=== PATIENT | female | born 1990 | race Hispanic/Latino ===

== ENCOUNTER 2017-08-21 20:47 | Emergency (ER) | payer OTHER ==
[2017-08-21] MEDS ORDERED: Morphine 4 MG/ML VIAL ONE (21:16)
[2017-08-21] MEDS ORDERED: Ondansetron HCl/PF 4 MG/2 ML Vial ONE (21:16)
[2017-08-21 21:38] LABS: #Basophils 0.1 thou/uL (0.0-0.2); #Eosinphils 0.2 thou/uL (0.0-0.7); #Lymphocytes 3.1 thou/uL (1.20-3.40); #Monocytes 0.8 thou/uL (0.11-0.59); #Neutrophils 4.7 thou/uL (1.40-6.50); %Eosinophils 2.7 % (0.0-10.0); %Lymphocytes 34.8 % (21.0-51.0); %Monocytes 9.1 % (0.0-10.0); Hematocrit 38.5 % (36.0-47.0); Mean Platelet Volume 6.4 fL (7.4-10.4); Red Blood Cell (RBC) Count 4.51 mill/uL (4.20-5.40); White Blood Cell (WBC) Count 8.9 thou/uL (4.8-10.8)
[2017-08-21 21:57] LABS: ALT (SGPT) 39 U/L (8-55); AST (SGOT) 36 U/L (5-34); Alkaline Phosphatase 53 U/L (40-150); Anion Gap 13 mmol/L (10-20); BUN (Urea Nitrogen) 12 mg/dL (7.0-18.7); Bilirubin, Total 0.3 mg/dL (0.2-1.2); Calc. Creatinine Clearance 0 mL/min (70-130); Calcium 9.2 mg/dL (7.8-10.44); Carbon Dioxide 21 mmol/L (22-29); Chloride 107 mmol/L (98-107); Estimated GFR-MDRD Greater than 90; Globulin 3.4 g/dL (2.4-3.5); Protein, Total 7.8 g/dL (6.0-8.3)
--- NOTE | 2017-08-21 22:04 | RAD ---
THREE VIEW LUMBAR SPINE RADIOGRAPHS 08/21/17 INDICATION: Pain. FINDINGS: No fracture or dislocation of the lumbar spine. Vertebral body heights and disc space heights are pre served. Spinal alignment is maintained. IMPRESSION: No acute osseous abnormality of the lumbar spine. POS: [facility]
--- NOTE | 2017-08-21 22:08 | RAD ---
FRONTAL VIEW PELVIS: 08/21/17 INDICATION: Pain. FINDINGS: There is no acute fracture or dislocation. Sacroiliac joints and symphysis pubis are maintained. Smal l heterotopic density, nonacute appearing, is seen at the medial aspect of the left greater trochante r. IMPRESSION: No definite acute osseous abnormality of the pelvis. POS: C
--- NOTE | 2017-08-21 22:08 | RAD ---
LEFT HIP TWO VIEWS: 08/21/17 INDICATION: Pain. FINDINGS: There is no acute fracture or dislocation left hip. A small heterotopic density is seen at the medial aspect of the left greater trochanter. IMPRESSION: No acute left hip fracture evident. POS: C
== END 2017-08-21 22:30 | disposition home or self-care (01) ==
LOC: ERS 20:47
DX: M25.552 Pain in left hip (principal); E11.9 Type 2 diabetes mellitus without complications; E03.9 Hypothyroidism, unspecified; Z79.891 Long term (current) use of opiate analgesic; Z79.899 Other long term (current) drug therapy
CPT/HCPCS: 72100; 72170; 80053; 84703; 85025; 85652; 86140; 96374; 96375; J2270; J2405

== ENCOUNTER 2017-08-22 12:17 | Emergency (ER) | payer OTHER ==
[2017-08-22] MEDS ORDERED: Ketorolac Tromethamine 30 MG/ML VIAL ONE (12:46)
[2017-08-22] MEDS ORDERED: Morphine 4 MG/ML VIAL ONE (12:46)
--- NOTE | 2017-08-22 14:36 | RAD ---
PELVIS 1 VIEW: Date: 08/22/17 HISTORY: Fall. Left hip pain. COMPARISON: Pelvic radiograph from prior day. FINDINGS: There appears to be a punctate, very small, osseous avulsion of the left greater trochanter versus en thesopathic change. The obturator ring is intact. IMPRESSION: Subacute small avulsion fracture versus or enthesopathic change of the left greater trochanter. POS: [facility]
--- NOTE | 2017-08-22 14:38 | RAD ---
LEFT HIP 2 VIEWS: Date: 08/22/17 HISTORY: Pain. COMPARISON: None. FINDINGS: Punctate calcification along the left greater trochanter. This may be subacute fracture versus enthes opathic change. Obturator ring is intact. IMPRESSION: Enthesopathic change versus subacute fracture punctate very small osseous avulsion of greater trochan ter. Given the patient's symptomatology, IT band syndrome versus greater trochanteric bursitis is fel t likely and those are findings that do not have radiographic features. POS: [facility]
== END 2017-08-22 16:44 | disposition home or self-care (01) ==
LOC: ERS 12:17
DX: M76.32 Iliotibial band syndrome, left leg (principal); M54.10 Radiculopathy, site unspecified; E11.9 Type 2 diabetes mellitus without complications; E03.9 Hypothyroidism, unspecified
CPT/HCPCS: 72170; 96374; 96375; J1885; J2270

== ENCOUNTER 2017-08-26 12:35 | Observation (INO) | payer OTHER ==
[2017-08-26 14:19] LABS: #Lymphocytes 0.8 thou/uL (1.20-3.40); #Monocytes 0.2 thou/uL (0.11-0.59); #Neutrophils 8.2 thou/uL (1.40-6.50); %Basophils 0.2 % (0.0-1.0); %Eosinophils 0.2 % (0.0-10.0); %Lymphocytes 8.2 % (21.0-51.0); %Monocytes 2.4 % (0.0-10.0); %Neutrophils 89.1 % (42.0-75.0); Hemoglobin 15.3 g/dL (12.0-16.0); Mean Corpuscular Volume 85.2 fl (81.0-99.0); Mean Platelet Volume 6.3 fL (7.4-10.4); Platelet Count 323 thou/uL (130-400); RBC Distribution Width 11.8 % (11.5-14.5); Red Blood Cell (RBC) Count 5.27 mill/uL (4.20-5.40); White Blood Cell (WBC) Count 9.2 thou/uL (4.8-10.8)
[2017-08-26] MEDS ORDERED: Ketorolac Tromethamine 30 MG/ML VIAL ONE (14:23)
[2017-08-26] MEDS ORDERED: Morphine 4 MG/ML VIAL ONE ×2 (14:23→17:07)
[2017-08-26 14:33] LABS: BHCG - Serum Negative (NEGATIVE); Pregs Control Background? CLEAR/WHITE (CLR/WHITE); Pregs Control Bar Appear? YES (CONTROL BAR)
[2017-08-26] MEDS ORDERED: Diazepam 5 MG TAB ONE (14:36)
[2017-08-26 14:40] LABS: Anion Gap 16 mmol/L (10-20); BUN (Urea Nitrogen) 16 mg/dL (7.0-18.7); Calc. Creatinine Clearance 0 mL/min (70-130); Calcium 9.6 mg/dL (7.8-10.44); Carbon Dioxide 22 mmol/L (22-29); Chloride 102 mmol/L (98-107); Estimated GFR-MDRD Greater than 90; Glucose 177 mg/dL (70-105); Potassium 3.6 mmol/L (3.5-5.1); Sodium 136 mmol/L (136-145)
--- NOTE | 2017-08-26 18:38 | MRI ---
MRI OF LUMBAR SPINE PERFORMED WITHOUT CONTRAST ENHANCEMENT: 08/26/17 HISTORY: Severe left hip pain radiating down to left leg. History of a fall two months ago. Vertebral bodies are normal in height. Disc desiccation changes are seen at L3-4 and L4-5. There is no significant periaortic adenopathy. The visualized portions of the kidneys appear unremark able. T12-L1: Unremarkable. L1-2: Unremarkable. L2-3: Unremarkable. L3-4: There is a small central disc protrusion and central annular disc tear at this level. There is a mild degree of canal narrowing. L4-5: there is a large central disc protrusion/minimal extrusion at this level. This is associated wi th a moderate degree of canal stenosis. L5-S1: No significant canal or foraminal narrowing. IMPRESSION: 1. Central annular disc tear and a fairly small central disc protrusion at L3-4. 2. Large central disc protrusion/minimal extrusion at the L4-5 level associated with a moderatel y severe degree of canal stenosis. The disc herniation at this level is slightly more left sided. POS: [facility]
[2017-08-26] MEDS ORDERED: Cyclobenzaprine 10 MG TAB PO SCH (20:30)
[2017-08-26 21:46] VITALS: BMI 33.0
--- NOTE | 2017-08-26 22:06 | HP ---
CHIEF COMPLAINT: Back pain. HISTORY OF PRESENT ILLNESS: She is a 26-year-old woman with history of diabetes. She came with lower back pain radiating to left leg with numbness and tingling. Pain is sharp, shooting pain. She went to ER 1 week ago and CAT scan was done that shows bulged disk at L4-L5. She went home on the prednisone and Flexeril, but she did not improve. Because of persistent symptoms, she decided to come to the hospital. When she came to the hospital, pain was 10/ 10. She could not walk. In the ER, her vital signs, pulse 97, blood pressure 113/90, pain 10, sats 94. She was given by ER, Valium 5 mg IV push, morphine 4 mg injection, and Toradol injections. The pain did not improve, so we put her in the hospital for further management. PAST MEDICAL HISTORY: Diabetes type 2, hypertension. MEDICATIONS: She is taking metformin at home for diabetes. PERSONAL HISTORY: Does not smoke. Does not drink. No IV drug use. FAMILY HISTORY: Positive for diabetes. REVIEW OF SYSTEMS: Constitutional: Negative for fever. Denies any malaise. ENT: Normal. Negative for ears, nose, or throat problem. Cardiovascular: Negative for dyspnea. No chest pain. No palpitation. Respiratory: No cough. No shortness of breath. Gastrointestinal: No nausea. No vomiting or belly pain. Genitourinary: No dysuria. No urinary symptoms. Musculoskeletal: Back pain radiating to left leg. Skin: No rash. Endocrine: No polyuria or polydipsia. PHYSICAL EXAMINATION: GENERAL: She is a young woman, obese, lying in the bed. She complained of back pain. VITAL SIGNS: Pulse 84, blood pressure 140/90, respirations 20, temperature 98.4. HEENT: Head is atraumatic and normocephalic. NECK: Supple. No JVD. No thyromegaly. No carotid bruit. CARDIOVASCULAR: S1, S2 audible. No S3 or S4. ABDOMEN: Soft. Bowel sounds audible. No organomegaly. EXTREMITIES: No pedal edema. BACK: Tenderness in midline L4-L5. Decreased sensation in her left leg. DTR + 1 bilaterally. NEUROLOGIC: She is alert and oriented x3. No focal deficit. IMAGING: In the ER, MRI pending. LABORATORY DATA: In the ER, WBC 13.8, hemoglobin 13.6, hematocrit 48.4, platelet count 256. ASSESSMENT AND PLAN: 1. Lower back pain with bulged disk of L4-L5, radiculopathy. Admit to the hospital. IV fluid. IV pain management. PT consult. MRI of lower back. 2. Type 2 diabetes. Continue metformin and sliding scale. 3. Deep venous thrombosis prophylaxis with Lovenox. MTDD
[2017-08-26] MEDS: Sodium Chloride 0.9% 1,000 ML IV SCH (22:08)
[2017-08-26] MEDS: HYDROcodone/Acetaminophen 10/325 mg Tablet PO PRN (22:27)
[2017-08-27] MEDS: Morphine 5 mg/5 ml in 0.9% NaCl/PF SYRINGE SLOW IVP PRN ×2 (00:35→04:47)
[2017-08-27] MEDS: HYDROcodone/Acetaminophen 10/325 mg Tablet PO PRN ×5 (01:54→21:43)
[2017-08-27] MEDS ORDERED: FLU VACC QS2017-18 36 mo. & older 0.5 ML SYRINGE IM ONE (09:00)
[2017-08-27] MEDS: Enoxaparin Sodium 40 MG/0.4 ML SYRINGE SC SCH (09:01)
[2017-08-27] MEDS: Sodium Chloride 0.9% 1,000 ML IV SCH (10:15)
[2017-08-27] MEDS ORDERED: Polyethylene Glycol 3350 17 GM Packet PO SCH (12:15)
--- NOTE | 2017-08-27 12:49 | PDOC.PN ---
- Subjective Encounter Start Date: 08/27/17 Encounter Start Time: 12:48 Subjective: Pt seen and examined for back pain with Left leg numbness -: Adequate pain control with IV Morphine -: Pain increased with activity - Objective MAR Reviewed: Yes Vital Signs & Weight: Vital Signs (12 hours) Temp Pulse Resp BP 08/27/17 11:48 97.6 F 107 H 20 134/90 08/27/17 08:00 97.6 F 109 H 20 133/83 08/27/17 07:32 97.9 F 96 19 I&O: 08/26/17 08/27/17 08/28/17 06:59 06:59 06:59 Intake Total 240 Balance 240 Result Diagrams: 08/26/17 14:10 08/26/17 14:10 Additional Labs: Accuchecks 08/27/17 08:29 POC Glucose 144 H Radiology Reviewed by me: Yes Phys Exam - Physical Examination HEENT: PERRLA, moist MMs, sclera anicteric, TM's clear, oral pharynx no lesions , 2+ tonsils Neck: no nodes, no JVD, supple, full ROM Respiratory: no wheezing, no rales, no rhonchi, wheezing present, clear to auscultation bilateral Cardiovascular: RRR, no significant murmur, no rub, gallop, irregular Gastrointestinal: soft, non-tender, no distention, positive bowel sounds Musculoskeletal: no edema, pulses present Tenderness L4,L5. DTR pLus one, decreased sensation left leg Neurological: non-focal, moves all 4 limbs Dx/Plan (1) Spinal stenosis at L4-L5 level Code(s): M48.061 - SPINAL STENOSIS, LUMBAR REGION WITHOUT NEUROGENIC UNIQUE Status: Acute (2) Lumbar disc herniation with radiculopathy Code(s): M51.16 - INTERVERTEBRAL DISC DISORDERS W RADICULOPATHY, LUMBAR REGION Status: Acute - Plan 1) Continue IV Fluids, PT consulted -: 2) Continue IV Morphine and PO Hydrocodone for pain -: 3) Neurosurgery consulted -: 4) Type 2 DM, continue Metformin -: 5) DVT Prophylaxis Lovenox * . Review of Systems - Review of Systems Respiratory: negative: Cough, Dry, Shortness of Breath, Hemoptysis, SOB with Excertion, Pleuritic Pain, Sputum, Wheezing Cardiovascular: negative: chest pain, palpitations, orthopnea, paroxysmal nocturnal dyspnea, edema, light headedness, other Genitourinary: negative: Dysuria, Frequency, Incontinence, Hematuria, Retention , Other Musculoskeletal: Back Pain Neurological: Numbness - Medications/Allergies Allergies/Adverse Reactions: Allergies Allergy/AdvReac Type Severity Reaction Status Date / Time shellfish derived Allergy Verified 08/26/17 22:53 Medications: Current Medications Hydrocodone Bitart/Acetaminophen ([place] 10/325) 1 tab PO Q4H PRN PRN Reason: Moderate Pain (4-6) Last Admin: 08/27/17 12:14 Dose: 1 tab Enoxaparin Sodium (Lovenox) 40 mg SC 0900 [facility] Last Admin: 08/27/17 09:01 Dose: 40 mg Sodium Chloride (Normal Saline 0.9%) 1,000 mls @ 75 mls/hr IV .[id number] [facility] Last Admin: 08/27/17 10:15 Dose: Not Given Metformin HCl (Glucophage) 500 mg PO BID-[facility] Morphine Sulfate/Sodium Chloride (Morphine 0.9% Nacl/Pf 5 Mg/5 M) 4 mg SLOW IVP Q4H PRN PRN Reason: Moderate to Severe Pain (6-10) Last Admin: 08/27/17 04:47 Dose: 4 mg Polyethylene Glycol (Miralax) 17 gm PO BID [facility] Polyethylene Glycol (Miralax) 17 gm PO NOW [facility] Stop: 08/27/17 14:00 Last Admin: 08/27/17 12:14 Dose: 17 gm Sodium Chloride (Flush - Normal Saline) 10 ml IVF Q12HR [facility] Last Admin: 08/27/17 09:00 Dose: Not Given Sodium Chloride (Flush - Normal Saline) 10 ml IVF PRN PRN PRN Reason: Saline Flush
[2017-08-27] MEDS: metFORMIN 500 MG TAB PO SCH (17:32)
[2017-08-27] MEDS ORDERED: Dexamethasone 4 mg/ml Vial SLOW IVP SCH ×2 (18:22→23:59)
[2017-08-27] MEDS: Polyethylene Glycol 3350 17 GM Packet PO SCH (20:34)
--- NOTE | 2017-08-28 00:31 | CON ---
DATE OF CONSULTATION: 08/27/2017 HISTORY OF PRESENT ILLNESS: Patient is a 26-year-old female with a past medical history of diabetes who presented to the ER on 08/26/2017 for low back and left leg pain. Patient reports that low back and left leg pain began approximately 2 months ago after she fell onto her left hip while wrapping a pallet. Patient reports she initially tried over the counter NSAIDs and rest without significant relief of her pain. She states 1 week ago, her symptoms became significantly worse with increasing radiation down her left leg in an L5 pattern. Symptoms are increased with walking, standing any movement. The pain was intractable in nature, therefore, she went to the emergency department for further evaluation of these symptoms. Patient was admitted to the Hospitalist Service for further management. A lumbar MRI was done which revealed a large central disk protrusion at L4-L5. She also has a small disk protrusion at L3- L4. She has been given Valium, morphine, and Toradol during her course and reports that she is feeling much improved. Her pain is approximately 4/10 at this time. PAST MEDICAL HISTORY: Type 2 diabetes, hypertension. PAST SURGICAL HISTORY: Patient denies any prior surgeries. FAMILY HISTORY: Noncontributory. SOCIAL HISTORY: Patient does not smoke, drink or use any drugs. ALLERGIES: SHELLFISH. CURRENT MEDICATIONS: Metformin. REVIEW OF SYSTEMS: Per HPI. PHYSICAL EXAMINATION: GENERAL: She appears comfortable sitting in the bed. She is in no acute distress. HEENT: Head normocephalic, atraumatic. NECK: Supple, nontender to palpation. Free active range of motion, no meningismus or nuchal rigidity. CARDIOVASCULAR: Regular rate and rhythm. RESPIRATORY: Patient is breathing comfortably. No evidence of dyspnea. BACK: She is tender to palpation diffusely over the lumbar spine and bilateral paralumbar musculature. MUSCULOSKELETAL: She has good muscle tone to bilateral upper and lower extremities. There is weakness appreciated with plantar flexion of the left foot. No reflex asymmetry. She has a positive straight leg raise on the left. NEUROLOGIC: Patient is A&O x4. She has normal cranial nerve exam. Negative Sharpe's, negative clonus. She has focal weakness, plantar flexion of the left foot. I did not attempt to ambulate the patient. ASSESSMENT AND PLAN: Patient appears to have acute left L5 radiculopathy secondary to L4-L5 disk herniation as seen on MRI. She is currently receiving Toradol, morphine, and Valium for symptoms, which has significantly improved her pain. Patient is able to sit up and move around in the bed without any difficulty. She also reports she has been able to walk to the bathroom. We will plan to treat the patient with 10 mg dexamethasone IV x1 now. Dr. Sena will also see the patient in the morning and we will discuss possible surgical options. This will likely be done on an outpatient basis. Please reach out to Neurosurgery Service for additional questions or concerns. KRYSTAL
[2017-08-28] MEDS: Sodium Chloride 0.9% 1,000 ML IV SCH ×2 (07:42→12:11)
[2017-08-28 08:04] VITALS: TEMP 98
[2017-08-28] MEDS: metFORMIN 500 MG TAB PO SCH (08:47)
[2017-08-28] MEDS: Enoxaparin Sodium 40 MG/0.4 ML SYRINGE SC SCH (08:48)
[2017-08-28] MEDS: Polyethylene Glycol 3350 17 GM Packet PO SCH (08:49)
[2017-08-28] MEDS: HYDROcodone/Acetaminophen 10/325 mg Tablet PO PRN (10:10)
[2017-08-28 12:07] VITALS: BP 131/77
[2017-08-28] MEDS ORDERED: Acetaminophen/Codeine 30-300mg Tablet PO PRN (12:11)
[2017-08-28] MEDS ORDERED: methylPREDNISolone 4 mg Tablet PO SCH ×2 (12:15→17:00)
[2017-08-28] MEDS ORDERED: CONFIRM ALL DAY 1 DOSES ARE TIMED FOR DAY 1 FS SCH (13:15)
[2017-08-28] MEDS ORDERED: metFORMIN 500 MG TAB PO SCH (17:00)
--- NOTE | 2017-08-29 00:38 | DIS ---
DATE OF ADMISSION: 08/26/2017 DATE OF DISCHARGE: 08/28/2017 She is a 26-year-old woman with history of type 2 diabetes. She came in because of some back pain with radiation to the left leg and she kept in the hospital for pain management. MRI of the spine was done that shows a disk bulge at L4-L5. Patient was treated with IV steroids and hydrocodone and physical therapy consult. Neurosurgery was consulted and consultation was appreciated and patient improved walking without PT, go to the bathroom herself and daily activities, pain was controlled so planned to send her home with follow up with a neurosurgeon for possible surgery in 2 weeks. PHYSICAL EXAMINATION: VITAL SIGNS: Showed pulse of 96, blood pressure 129/82, respiration 20, temperature 95.0. GENERAL: Alert, oriented. NECK: Supple. No JVD. CHEST: Normal vascular breathing, no added sound. HEART: S1, S2 audible. No S3-S4. ABDOMEN: Soft, bowel sounds audible, no organomegaly, no guarding, no rigidity. EXTREMITIES: No pedal edema. BACK: She has tenderness lower back L4-L5 with radiculopathy to the left leg, straight leg DTR +1 bilaterally , sensation decreased on the left side. Straight leg raise is positive. No cauda equina syndrome. LABORATORY DATA: Shows a hematocrit of 44.9, MCV 85.2, platelets 323. WBC is 9.2. Chemistry shows sodium 136, potassium 3.6, carbon dioxide 22, chloride 102 , BUN 16, creatinine 0.68, glucose 177. MRI showed disk bulge at the L4-L5. DISCHARGE MEDICATIONS: 1. Solu-Medrol DosePak. 2. Tylenol #3, 1-2 tablets, #30. FINAL DIAGNOSES: 1. Acute disk bulge L4-L5 with radiculopathy. 2. Spinal stenosis. 3. Type 2 diabetes. PLAN: Disposition home. Follow up with the neurosurgeon in 2 weeks for possible surgery. KRYSTAL
[2017-08-29] MEDS ORDERED: Levothyroxine Sodium 25 MCG TAB PO SCH (06:00)
[2017-08-29] MEDS ORDERED: methylPREDNISolone 4 mg Tablet PO SCH ×2 (08:00→21:00)
[2017-08-29] MEDS ORDERED: NORETHINDRONE E ESTRADIOL IRON PO SCH (09:00)
[2017-08-30] MEDS ORDERED: methylPREDNISolone 4 mg Tablet PO SCH (08:00)
[2017-08-31] MEDS ORDERED: methylPREDNISolone 4 mg Tablet PO SCH (08:00)
[2017-09-01] MEDS ORDERED: methylPREDNISolone 4 mg Tablet PO SCH (08:00)
[2017-09-02] MEDS ORDERED: methylPREDNISolone 4 mg Tablet PO SCH (08:00)
== END 2017-08-28 14:35 | disposition home or self-care (01) ==
LOC: ERS 12:35 → 3SE 20:01
PROVIDERS: ADMIT Family Medicine; ATTEND Family Medicine
DX: M51.16 Intervertebral disc disorders with radiculopathy, lumbar region (principal); M48.061 Spinal stenosis, lumbar region without neurogenic claudication; E11.9 Type 2 diabetes mellitus without complications; I10 Essential (primary) hypertension; Z91.013 Allergy to seafood; Z79.84 Long term (current) use of oral hypoglycemic drugs
CPT/HCPCS: 36415; 36416; 72148; 80048; 84703; 85025; 96361; 96372; 96374; 96375; 96376; A4216; G0378; J1100; J1650; J1885; J2270

== ENCOUNTER 2017-09-07 10:49 | Outpatient (CLI) | payer OTHER ==
[2017-09-07 12:58] LABS: BHCG - Serum Negative (NEGATIVE); Pregs Control Background? CLEAR/WHITE (CLR/WHITE); Pregs Control Bar Appear? YES (CONTROL BAR)
== END 2017-09-07 10:50 | disposition home or self-care (01) ==
LOC: LABBT 10:49
PROVIDERS: ATTEND Neurological Surgery
DX: Z01.812 Encounter for preprocedural laboratory examination (principal); M51.16 Intervertebral disc disorders with radiculopathy, lumbar region
CPT/HCPCS: 84703

== ENCOUNTER 2017-09-08 05:45 | Day surgery (SDC) | payer OTHER ==
[2017-09-08] MEDS ORDERED: CEFAZOLIN/Water 2 GM/20 ML SYRINGE ONE (06:19)
[2017-09-08] MEDS ORDERED: Fentanyl 100 MCG/2 ML VIAL ONE ×2 (07:06→08:50)
[2017-09-08] MEDS ORDERED: Midazolam HCl 2 mg/2 ml Vial ONE (07:09)
[2017-09-08] MEDS ORDERED: Meperidine HCl/PF 25 MG/ML VIAL ONE (08:46)
--- NOTE | 2017-09-08 11:41 | OP ---
SURGEON: Zhao Sena M.D. ADOPTION SPECIALIST: Danny Brower PROCEDURE: Left L4-5 microdiscectomy. PROCEDURE IN DETAIL: The patient was brought into the operating room, intubated. She was rolled in the prone position on gel-filled chest rolls. Incision made exposing L4 and L5 on the left and our l evel was confirmed by x-ray. We performed left L4-5 hemilaminectomy, reveal ligament, identified the left L5 nerve root and beneath it was a large herniated disk. This was removed in one large fragmen t. A complete decompression was secured. The wound was extensively irrigated, immaculate hemostasis was achieved. Vancomycin powder was applied and the wound was closed in anatomic layers.
[2017-09-08] MEDS ORDERED: Lidocaine 1% PF 5 ML VIAL ONE (15:34)
[2017-09-08] MEDS ORDERED: Metoprolol Tartrate 5 MG/5 ML VIAL ONE (15:34)
[2017-09-08] MEDS ORDERED: Ondansetron HCl/PF 4 MG/2 ML Vial ONE (15:34)
[2017-09-08] MEDS ORDERED: Propofol 200 MG/20 ML VIAL ONE (15:34)
== END 2017-09-08 11:30 | disposition home or self-care (01) ==
LOC: SDC 05:45
PROVIDERS: ATTEND Neurological Surgery
PROC: 01NB0ZZ Release Lumbar Nerve, Open Approach (ICD-10-PCS; principal; 2017-09-08)
PROC: 0ST20ZZ Resection of Lumbar Vertebral Disc, Open Approach (ICD-10-PCS; principal; 2017-09-08)
DX: M51.16 Intervertebral disc disorders with radiculopathy, lumbar region (principal); E11.9 Type 2 diabetes mellitus without complications; I10 Essential (primary) hypertension; Z79.84 Long term (current) use of oral hypoglycemic drugs; Z79.3 Long term (current) use of hormonal contraceptives; Z79.899 Other long term (current) drug therapy; Z91.013 Allergy to seafood
CPT/HCPCS: 36416; 76001; 96374; J2001; J2175; J2250; J2405; J2704; J3010; J3370

== ENCOUNTER 2019-11-01 09:23 | Outpatient (CLI) | payer BC ==
[2019-11-01 10:12] LABS: Estimated GFR-MDRD - POC Greater than 90
--- NOTE | 2019-11-01 11:26 | MRI ---
MRI OF THE LUMBAR SPINE WITH AND WITHOUT CONTRAST: Date: 11/01/2019 COMPARISON: None. HISTORY: Lumbar radiculopathy, degenerative disc disease. TECHNIQUE: Multiplanar, multisequence MR imaging of the lumbar spine was provided with and without contrast. FINDINGS: The sagittal STIR imaging demonstrates no focal area of osseous marrow edema. On the basis of five lumbar-type vertebral bodies, the conus medullaris terminates at the T12-L1 leve l. T12-L1: Intervertebral disc height and signal intensity within normal limits with no significant kim tral canal or neural foraminal stenosis. L1-2: Intervertebral disc height and signal intensity within normal limits with no significant centr al canal or neural foraminal stenosis. L2-3: Mild bilateral facet hypertrophy, right greater than left. Intervertebral disc height and sign al intensity within normal limits with no significant central canal or neural foraminal stenosis. L3-4: There is disc space narrowing with disc desiccation and a small central disc protrusion. Mild bilateral facet hypertrophy. No significant neural foraminal stenosis. Minimal central canal stenosis . Central annular tear noted. L4-5: There is disc space narrowing with disc desiccation, mild disc bulge, and small superimposed c entral disc protrusion with associated annular tear. No significant central canal or neural foraminal stenosis. L5-S1: Intervertebral disc height and signal intensity appears within normal limits with no signific ant central canal or neural foraminal stenosis. The imaged retroperitoneal structures demonstrate no acute findings. Postcontrast imaging demonstrates no abnormal enhancement involving the contents of the thecal sac, t he intervertebral discs, or the imaged osseous structures. IMPRESSION: Degenerative disc disease within the lumbar spine, primarily involving the L3-4 and L4-5 levels as de tailed above. POS: [facility]
[2019-11-01] MEDS ORDERED: Magnevist 469MG/ML 20 ML VIAL ONE (14:21)
== END 2019-11-01 09:24 | disposition home or self-care (01) ==
LOC: TBSIIMAG 09:23
PROVIDERS: ATTEND Neurological Surgery
DX: M51.16 Intervertebral disc disorders with radiculopathy, lumbar region (principal)
CPT/HCPCS: 72158; 82565; A9579